=== PATIENT | female | born 1980 | race Two or more races ===

== ENCOUNTER 2022-05-10 19:28 | Emergency (ER) | payer OTHER ==
[~2022-05-10] VITALS: Ht 165.1 cm; Wt 70.8 kg
--- NOTE | 2022-05-10 22:03 | NUR ---
PT BIBSELF C/O NECK PAIN THAT RADIATES TO LEFT ARM WITH NUMBNESS X APRIL 19. PER PT, THINKS ITS HERNIATED DISK. LEFT ARM IS GETTING PROGRESSIVELY WORSE. PT ENDORSES HAVING NEURO APPOINTMENT. PT AAOX4 BREATHING EVENLY AND UNLABORED. PT ATTACHED TO MONITOR AND POX. MD AT BEDSIDE FOR EVAL.
[2022-05-10] MEDS ORDERED: HYDROCODONE/APAP 5/325MG TABLET PO ONE (22:30)
[2022-05-10] MEDS ORDERED: DEXAMETHASONE SOD PHOSPHATE 4 MG/ML VIAL IM ONE (22:30)
[2022-05-10] MEDS ORDERED: DEXAMETHASONE SOD PHOSPHATE 10 MG/ML VIAL ONE (22:30)
[2022-05-10] MEDS ORDERED: CARISOPRODOL 350 MG TABLET PO ONE (22:30)
[2022-05-10] MEDS ORDERED: HYDROCODONE/APAP 5/325MG TABLET ONE (22:31)
[2022-05-10] MEDS ORDERED: CARISOPRODOL 350 MG TABLET ONE (22:31)
--- NOTE | 2022-05-10 23:01 | NUR ---
TAKEN TO RADIOLOGY
[2022-05-11] MEDS ORDERED: CARI350T PO (00:01)
[2022-05-11] MEDS ORDERED: PRED50TA PO (00:01)
--- NOTE | 2022-05-11 00:22 | NUR ---
Patient discharged to home in stable condition. Written and verbal after care instructions given. Patient verbalizes understanding of instruction.PT ambulatory with a steady gait
[2022-05-11 00:32] VITALS: BP 140/89
== END 2022-05-11 00:22 | disposition home or self-care (01) ==
LOC: ER 19:38
DX: M62.838 Other muscle spasm (principal); M54.12 Radiculopathy, cervical region; M19.90 Unspecified osteoarthritis, unspecified site; I10 Essential (primary) hypertension; Z60.2 Problems related to living alone; Z79.899 Other long term (current) drug therapy
CPT/HCPCS: 99284; 72125; 96372; J1100

== ENCOUNTER 2022-05-22 16:47 | Emergency (ER) | payer OTHER ==
[~2022-05-22] VITALS: Ht 165.1 cm; Wt 68.0 kg
[~2022-05-22 16:47] MED LIST: CARI350T PO; PRED50TA PO
--- NOTE | 2022-05-22 17:22 | NUR ---
CHEST DISCOMFORT (BURNING) AND "PALPITATION" SINCE THIS MORNING. ANXIOUS, ADMITS TO SMOKING "WEED" THIS MORNING. PT STATED SHE HAD DISC REPLACEMENT SURGERY ABOUT A WEEK AGO AND THE LAST FEW DAYS SHE FELT FATIGUE. SHE FELT A BURNING SNESNSATION AND TOK HER BLOOD PRESSURE AND NOTICE HER HEART RATE IS ELEVATED. ATTACHED TO MONITOR, HEART RATE AND BLOOD PRESSURE ELEVATED. A&OX4. WARM BLANKET PROVIDED FOR COMFORT. AWAITING ORDERS.
--- NOTE | 2022-05-22 17:41 | NUR ---
URINE COLLECTED AND SENT
--- NOTE | 2022-05-22 17:46 | NUR ---
IV VERO R AC 18G. LABS DRAWN AND COLLECTED AT BEDSIDE.
[2022-05-22 18:21] LABS: CALCIUM, SERUM 9.2 mg/dL (8.5-10.1); CARBON DIOXIDE 26 mmol/L (21-32); CHLORIDE 104 mmol/L (98-107); GLUCOSE 138 mg/dL (74-106); POTASSIUM 3.6 mmol/L (3.5-5.1); SODIUM SERUM 139 mmol/L (136-145); UREA NITROGEN, BLOOD 24 mg/dL (7-18)
[2022-05-22 18:28] LABS: BASOPHILS % (AUTO) 0.2 % (0.0-2.0); HEMATOCRIT 43 % (33-45); HEMOGLOBIN 14.5 g/dL (11.5-14.8); LYMPHOCYTES # (AUTO) 0.7 K/uL (0.8-4.8); LYMPHOCYTES % (AUTO) 6.5 % (20.0-44.0); MEAN CORPUSCULAR HGB CONC 34 g/dl (31.0-36.0); MEAN CORPUSCULAR VOLUME 95 fL (82-100); MONOCYTES # (AUTO) 0.2 K/uL (0.1-1.30); MONOCYTES % (AUTO) 2.3 % (2.0-12.0); NEUTROPHILS # (AUTO) 9.5 K/uL (1.8-8.9); PLATELET COUNT (AUTO) 203 K/uL (150-450); RED BLOOD CELL COUNT(AUTO) 4.47 MIL/uL (4.0-5.2); WHITE BLOOD COUNT (AUTO) 10.5 K/uL (4.3-11.0)
[2022-05-22] MEDS ORDERED: ASPIRIN 81 MG TAB.CHEW PO ONE (18:30)
[2022-05-22] MEDS ORDERED: ASPIRIN 81 MG TAB.CHEW ONE (18:30)
[2022-05-22 18:35] LABS: ALANINE AMINOTRANSFERASE 24 U/L (12-78); ALBUMIN 4.1 g/dL (3.4-5.0); ALKALINE PHOSPHATASE 54 U/L (46-116); ASPARTATE AMINOTRANSFERASE 15 U/L (15-37); BILIRUBIN,DIRECT 0.1 mg/dL (0.0-0.2); BILIRUBIN,TOTAL 0.1 mg/dL (0.2-1.0); TOTAL PROTEIN, SERUM 7.5 g/dL (6.4-8.2)
[2022-05-22] MEDS ORDERED: LORAZEPAM INJ 2 MG/ML VIAL ONE (18:48)
[2022-05-22] MEDS ORDERED: diphenhydrAMINE HCL 50 MG/ML VIAL ONE (18:48)
[2022-05-22] MEDS ORDERED: diphenhydrAMINE HCL 50 MG/ML VIAL IV ONE (19:00)
[2022-05-22] MEDS ORDERED: LORAZEPAM INJ 2 MG/ML VIAL IV ONE (19:00)
[2022-05-22] MEDS ORDERED: IOHEXOL-350 100 ML VIAL IV ONE (20:10)
[2022-05-22] MEDS ORDERED: IV NS 0.9% 250 ML IV ONE (20:10)
--- NOTE | 2022-05-22 20:21 | NUR ---
PT TRANSPORTED TO CT
--- NOTE | 2022-05-22 20:38 | NUR ---
URINE COLLECTED AND SENT TO LAB
[2022-05-22] MEDS ORDERED: ONDANSETRON HCL/PF 4 MG/2 ML VIAL ONE (20:52)
[2022-05-22] MEDS ORDERED: MORPHINE SULFATE INJ 4 MG/ML DISP.SYRIN ONE (20:52)
[2022-05-22 20:57] LABS: BILIRUBIN,URINE NEGATIVE (NEGATIVE); COLOR,URINE YELLOW (YELLOW); LEUKOCYTE ESTERASE ,URINE NEGATIVE (NEGATIVE); NITRITE, URINE NEGATIVE (NEGATIVE); PH,URINE 5.5 (5.0-8.0); PROTEIN,URINE NEGATIVE (NEGATIVE); UGLUCOSE NEGATIVE (NEGATIVE); UROBILINOGEN,URINE 0.2 EU/dL (0.2)
[2022-05-22] MEDS ORDERED: MORPHINE SULFATE INJ 10 MG/ML DISP.SYRIN IV ONE (21:00)
[2022-05-22] MEDS ORDERED: ONDANSETRON HCL/PF 4 MG/2 ML VIAL IV ONE (21:00)
[2022-05-22 21:10] LABS: BACTERIA,URINE None seen /HPF (None Seen); RBC,URINE 0-2 /HPF (0-2); WBC,URINE 0-2 /HPF (0-3)
--- NOTE | 2022-05-22 22:17 | NUR ---
Patient discharged to home in stable condition. Written and verbal after care instructions given. Patient verbalizes understanding of instruction.IV removed. Catheter intact and site benign. Pressure and 4x4 applied to site. No bleeding noted.
[2022-05-22 22:20] VITALS: BP 105/78
== END 2022-05-22 22:20 | disposition home or self-care (01) ==
LOC: ER 17:00
DX: I49.3 Ventricular premature depolarization (principal); R00.0 Tachycardia, unspecified; R21 Rash and other nonspecific skin eruption; F12.90 Cannabis use, unspecified, uncomplicated; R79.89 Other specified abnormal findings of blood chemistry; I10 Essential (primary) hypertension; F41.9 Anxiety disorder, unspecified; F32.A Depression, unspecified; Z98.890 Other specified postprocedural states; Z60.2 Problems related to living alone; Z79.899 Other long term (current) drug therapy
CPT/HCPCS: 99285; 96374; 71275; 96375; 71045; 93005 ×2; 85025; 80048; 87040 ×2; 83605; 80076; 85378; 84703; 81001; 36415; 84484 ×2; J2060; J1200; J2270 ×2; J2405; J7050; A6403; Q9967